=== PATIENT | female | born 1955 | race Caucasian/White ===

== ENCOUNTER → 2016-06-05 | Outpatient (CLI) | payer BC ==
[~2016-06-05] MED LIST: ACET-1138 PO; ASPEC81 PO; CLB200 PO; FLV1 PO; HYDR25TA4 PO; LOSA1TAB PO; NXM/40 PO; OXYSR10 PO
== END | disposition home or self-care (01) ==
LOC: C.LABSPEC 13:20
PROVIDERS: ATTEND Family Medicine
DX: R31.9 Hematuria, unspecified (principal)

== ENCOUNTER → 2016-08-15 | Outpatient (CLI) | payer BC ==
--- NOTE | 2016-08-15 12:30 | MAMMOGRAPHY REPORT ---
BILATERAL DIGITAL SCREENING MAMMOGRAM WITH CAD: 08/15/2016 CLINICAL HISTORY: Routine screening. TECHNIQUE: Current study was also evaluated with a Computer Aided Detection (CAD) system. Bilateral CC and MLO views were obtained. COMPARISON: Comparison is made to exams dated: 08/13/2015 mammogram, 08/11/2014 mammogram, 08/09/2013 m ammogram, 07/30/2012 mammogram, 07/28/2011 mammogram - [facility], and 04/10/2010 mamm ogram. BREAST COMPOSITION: There are scattered areas of fibroglandular density in both breasts. FINDINGS: No suspicious masses, calcifications, or areas of architectural distortion are noted in ei ther breast. There has been no significant interval change compared to prior exams. There are stable postsurgical changes in bilateral breasts from prior reduction mammoplasty, including multiple fat d ensity circumscribed masses in the left superior breast consistent with benign oil cysts from fat nec rosis. Bilateral asymmetries are stable. IMPRESSION: ACR BI-RADS CATEGORY 2: BENIGN There is no mammographic evidence of malignancy. A 1 year screening mammogram is recommended. The pa tient will receive written notification of the results. Approximately 10% of breast cancers are not detected with mammography. A negative mammographic report should not delay biopsy if a clinically suggestive mass is present. Myrtle Barraza M.D. /:08/15/2016 09:18:44 [place] Roller: Serena SUAZO)([place]), [facility] letter sent: Normal 1/2 BI-RADS Code: ACR BI-RADS Category 2: Benign
== END | disposition home or self-care (01) ==
LOC: C.MAMM 08:53
PROVIDERS: ATTEND Family Medicine
DX: Z12.31 Encounter for screening mammogram for malignant neoplasm of breast (principal)

== ENCOUNTER → 2016-08-27 | Outpatient (CLI) | payer BC ==
[2016-09-02 16:05] LABS: 18KDIGG BAND NONREACTIVE (NONREACTIVE); 23KDIGG BAND NONREACTIVE (NONREACTIVE); 23KDIGM BAND NONREACTIVE (NONREACTIVE); 28KDIGG BAND NONREACTIVE (NONREACTIVE); 30KDIGG BAND NONREACTIVE (NONREACTIVE); 39KDIGG BAND NONREACTIVE (NONREACTIVE); 39KDIGM BAND NONREACTIVE (NONREACTIVE); 41KDIGG BAND NONREACTIVE (NONREACTIVE); 41KDIGM BAND NONREACTIVE (NONREACTIVE); 45KDIGG BAND NONREACTIVE (NONREACTIVE); 58KDIGG BAND NONREACTIVE (NONREACTIVE); 66KDIGG BAND REACTIVE (NONREACTIVE); 93KDIGG BAND NONREACTIVE (NONREACTIVE)
== END | disposition home or self-care (01) ==
LOC: C.LABMFLN 13:39
PROVIDERS: ATTEND Orthopaedic Surgery Sports Medicine
DX: T14.8 Other injury of unspecified body region (principal); W57.XXXA Bitten or stung by nonvenomous insect and other nonvenomous arthropods, initial encounter

== ENCOUNTER → 2017-01-07 | Outpatient (CLI) | payer BC ==
[2017-01-07 13:23] LABS: BASO % 0.4 %; BASO ABS # 0.03 K/uL (0-0.2); COMPLETE YES; EOS % 0.7 %; HEMATOCRIT 37.6 % (37-47); IG% 0.3 %; LYMPH % 41.6 %; LYMPH ABS # 2.86 K/uL (1.2-3.4); MEAN CELL VOLUME 80.5 fL (80-100); MEAN CORPUSCULAR HEMOGLOBIN 25.5 pg (25-34); MEAN CORPUSCULAR HGB CONC 31.6 g/dl (32-36); MEAN PLATELET VOLUME 10.6 fL (7.4-10.4); MONO % 6.8 %; NEUT % 50.2 %; PLATELET COUNT 326 K/uL (130-400); RED BLOOD COUNT 4.67 M/uL (4.2-5.4); WHITE BLOOD COUNT 6.87 K/uL (4.8-10.8)
[2017-01-07 15:42] LABS: ALT/SGPT 39 U/L (12-78); BLOOD UREA NITROGEN 11 mg/dl (7-18); BUN/CREATININE RATIO 13.7 (10-20); CALCIUM 8.9 mg/dl (8.5-10.1); CARBON DIOXIDE 31 mmol/L (21-32); CHLORIDE 102 mmol/L (98-107); CHOLESTEROL 185 mg/dl (0-200); CREATININE 0.79 mg/dl (0.60-1.20); GLUCOSE 139 mg/dl (70-99); POTASSIUM 3.5 mmol/L (3.5-5.1); SODIUM 138 mmol/L (136-145); TRIGLYCERIDES 135 mg/dl (0-150); VERY LOW DENSITY LIPOPROT CALC 27 mg/dl
[2017-01-07 15:45] LABS: ALKALINE PHOSPHATASE 123 U/L (45-117); AST/SGOT 25 U/L (15-37); CHOLESTEROL/HDL RATIO 2.9; HDL CHOLESTEROL 64 mg/dl; LDL CHOLESTEROL CALCULATED 94 mg/dl
== END | disposition home or self-care (01) ==
LOC: C.LABSPEC 12:47
PROVIDERS: ATTEND Family Medicine
DX: I10 Essential (primary) hypertension (principal); E78.2 Mixed hyperlipidemia

== ENCOUNTER → 2017-01-20 | Outpatient (CLI) | payer BC ==
--- NOTE | 2017-01-20 14:34 | DIAGNOSTIC IMAGING REPORT ---
MRI LEFT KNEE NO CONTRAST CLINICAL HISTORY: LT KNEE PAIN history of knee arthroplasty in 2016 COMPARISON STUDY: 05/30/2015 FINDINGS: Imaging was performed in the sagittal, coronal, and axial planes. There is marked susceptibility artifact secondary to a prior total left knee arthroplasty. There is a small suprapatellar joint effusion. There are no areas of marrow replacement suspicious for neoplasm. There is marrow edema within the proximal tibia, surrounding the tibial spike. There is evidence for bone resorption. No soft tissue or intramuscular masses are visualized on this noncontrast study. There is nonspecific angulation of the tibial spike, best seen on the sagittal images. This may be artifactual. Correlation with conventional radiographs is recommended. IMPRESSION: 1. Postsurgical changes of a total left knee arthroplasty 2. Bone resorption surrounding the tibial component with adjacent marrow edema. 3. Joint effusion 4. Nonspecific angulation of the midportion of the tibial spike. While this may be artifactual, it would seem prudent to correlate with conventional radiographs. Electronically signed by: Nic Bowers M.D. 01/20/2017 2:33 PM Dictated Date/Time: 01/20/2017 2:21 PM
== END | disposition home or self-care (01) ==
LOC: C.MRI 12:53
PROVIDERS: ATTEND Family Medicine
DX: M25.562 Pain in left knee (principal)

== ENCOUNTER → 2017-01-30 | Outpatient (CLI) | payer BC ==
--- NOTE | 2017-01-30 13:02 | DIAGNOSTIC IMAGING REPORT ---
L KNEE 1 OR 2 VIEWS ROUTINE HISTORY: 61 years-old Female PAIN IN LEFT KNEE chronic left knee pain with history of prior total knee arthroplasty COMPARISON: Left knee radiographs 05/30/2015 TECHNIQUE: 2 views of left knee FINDINGS: Left knee arthroplasty without evidence of hardware complication. Prior patellar resurfacing. Alignment is satisfactory. The bones appear mildly demineralized. Small joint effusion. IMPRESSION: 1. Small joint effusion without acute fracture or dislocation. 2. Left knee arthroplasty without complication. The above report was generated using voice recognition software. It may contain grammatical, syntax or spelling errors. Electronically signed by: Clifford Beltran M.D. 01/30/2017 1:00 PM Dictated Date/Time: 01/30/2017 12:59 PM
== END | disposition home or self-care (01) ==
LOC: C.RAD 11:58
PROVIDERS: ATTEND Family Medicine
DX: M25.462 Effusion, left knee (principal); Z96.652 Presence of left artificial knee joint

== ENCOUNTER → 2017-02-23 | Outpatient (CLI) | payer BC ==
[2017-02-23 18:48] LABS: BASO % 0.3 %; BASO ABS # 0.03 K/uL (0-0.2); EOS ABS # 0.09 K/uL (0-0.5); HEMATOCRIT 37.9 % (37-47); HEMOGLOBIN 12.1 g/dL (12.0-16.0); IG# 0.02 K/uL (0.00-0.02); LYMPH % 34.8 %; MEAN CELL VOLUME 80.6 fL (80-100); MEAN CORPUSCULAR HEMOGLOBIN 25.7 pg (25-34); MEAN CORPUSCULAR HGB CONC 31.9 g/dl (32-36); MEAN PLATELET VOLUME 10.7 fL (7.4-10.4); MONO % 7.2 %; MONO ABS # 0.66 K/uL (0.11-0.59); NEUT % 56.5 %; NEUT ABS # 5.19 K/uL (1.4-6.5); PLATELET COUNT 358 K/uL (130-400); RED CELL DISTRIBUTION WIDTH CV 14.7 % (11.5-14.5); RED CELL DISTRIBUTION WIDTH SD 43.1 fL (36.4-46.3); WHITE BLOOD COUNT 9.19 K/uL (4.8-10.8)
[2017-02-23 19:05] LABS: ALBUMIN 3.5 gm/dl (3.4-5.0); ALT/SGPT 30 U/L (12-78); AST/SGOT 15 U/L (15-37); BLOOD UREA NITROGEN 8 mg/dl (7-18); CALCIUM 8.7 mg/dl (8.5-10.1); CARBON DIOXIDE 29 mmol/L (21-32); CREATININE 0.75 mg/dl (0.60-1.20); GLUCOSE 124 mg/dl (70-99); POTASSIUM 3.4 mmol/L (3.5-5.1); SODIUM 138 mmol/L (136-145)
[2017-02-23 19:09] LABS: ALKALINE PHOSPHATASE 120 U/L (45-117); TOTAL PROTEIN 7.7 gm/dl (6.4-8.2)
== END | disposition home or self-care (01) ==
LOC: C.LABSPEC 17:49
PROVIDERS: ATTEND Family Medicine
DX: R07.89 Other chest pain (principal)

== ENCOUNTER → 2017-03-06 | Outpatient (CLI) | payer BC ==
--- NOTE | 2017-03-06 13:17 | EXERCISE STRESS ECHO ---
*NOTICE TO RECEIVING [employer] This information is strictly Confidential and protected under [place] law. [place] law prohibits you from making any further disclosure of this information unless further disclosure is expressly permitted by the written consent of the person to whom it pertains or is authorized by law. A general authorization for the release of medical or other information is not sufficient for this purpose. Hospital accepts no responsibility if the information is made available to any other person, INCLUDING THE PATIENT. Interpretation Summary * Name: TINA ETIENNE Study Date: 03/06/2017 09:43 AM BP: 143/73 mmHg * Patient Location: [facility] HR: 77 * : 1955 (M/d/yyyy) Gender: Female Height: 52 in * Age: 61 yrs Ethnicity: [place] Weight: 205 lb * Ordering Physician: Misha Coats * Referring Physician: Misha Coats ([place]) * Performed By: Christine Garcia RCS * * Reason For Study: CHEST PAIN * BSA: 1.7 m2 * -- Conclusions -- * 1. Negative exercise stress echo for ischemia at >110% MPHR. * 2. Negative stress ECG for ischemia. * 3. Average functional capacity for age. Exercised 6:00 min, acheiving 7 METS. * 4. No exercise induced chest pain. Normal hemodynamic response to exercise. * 5. Normal resting LV size and function. EF 55-60%. Normal RV size and function. No significant valvular pathology. * 6. No prior studies for comparison. Procedure Details * ECHOEX, CPT #[id number] * ECHO COLOR FLOW, CPT #[id number] * ECHO DOPPLER, CPT #[id number] Left Ventricular Findings with Stress * This was essentially a normal study. Left Ventricle * The left ventricle is grossly normal size. * There is normal left ventricular wall thickness. * Ejection Fraction = 55-60%. * Resting wall motion: Normal. Stress wall motion: Appropriate increase in Left ventricular systolic function and decrease in cavity size. No stress induced segmental wall motion abnormalities. Right Ventricle * The right ventricle is grossly normal size. * The right ventricular systolic function is normal as assessed by tricuspid annular plane systolic excursion (TAPSE) (normal >1.5 cm). Atria * The left atrial size is normal. * Right atrial size is normal. Mitral Valve * The mitral valve is grossly normal. * There is no mitral valve stenosis. * There is trace mitral regurgitation. Aortic Valve * The aortic valve opens well. * No hemodynamically significant valvular aortic stenosis. * There is no significant aortic regurgitation. Pulmonic Valve * The pulmonary valve is inadequately visualized, but the Doppler data is adequate for interpretation. * There is no significant pulmonary regurgitation. Great Vessels * The aortic root and proximal ascending aorta are normal sized. Pericardium * There is no pericardial effusion. Stress Parameters * Normal baseline electrocardiogram. * Stress ECG: No ST changes. No arrhythmias. * No arrhythmia were noted with stress. * Rest heart rate was '77' BPM. * Rest blood pressure was '143/73' * Maximum heart rate achieved was 181 bpm. * Maximum heart rate was 114 % of maximum age-predicted heart rate. * Maximum blood pressure was '172/68' * Total exercise time was '6:010' * Maximum exercise MET level achieved was '7.0' METS * Maximum treadmill speed was '2.5' miles per hour. * Maximum treadmill elevation was '12'% grade. * Exercise was terminated due to 'fatigue after achieving target heart rate' * Normal blood pressure response to exercise. Left Ventricular Findings with Stress * The study was technically good with many images being of high quality. MMode 2D Measurements and Calculations IVSd 0.99 cm IVSs 1.3 cm LVIDd 4.8 cm LVIDs 2.9 cm LVPWd 0.91 cm LVPWs 1.3 cm IVS/LVPW 1.1 FS 38.5 % EDV(Teich) 106.0 ml ESV(Teich) 33.2 ml EF(Teich) 68.7 % EDV(cubed) 108.6 ml ESV(cubed) 25.3 ml EF(cubed) 76.7 % % IVS thick 33.0 % % LVPW thick 38.7 % LV mass(C)d 156.8 grams LV mass(C)dI 92.2 grams/m\S\2 LV mass(C)s 118.6 grams LV mass(C)sI 69.8 grams/m\S\2 SV(Teich) 72.8 ml SI(Teich) 42.8 ml/m\S\2 SV(cubed) 83.3 ml SI(cubed) 49.0 ml/m\S\2 Ao root diam 3.5 cm Ao root area 9.5 cm\S\2 ACS 1.7 cm LA dimension 3.9 cm asc Aorta Diam 3.3 cm LA/Ao 1.1 Doppler Measurements and Calculations MV E max melisa 71.6 cm/sec MV A max melisa 100.5 cm/sec MV E/A 0.71 MV dec time 0.23 sec Ao V2 max 115.9 cm/sec Ao max PG 5.4 mmHg Ao max PG (full) 2.0 mmHg LV V1 max PG 3.4 mmHg LV V1 max 91.9 cm/sec PA V2 max 82.4 cm/sec PA max PG 2.7 mmHg
== END | disposition home or self-care (01) ==
LOC: C.CPL 09:40
PROVIDERS: ATTEND Family Medicine
DX: R07.89 Other chest pain (principal); M54.9 Dorsalgia, unspecified

== ENCOUNTER → 2017-04-06 | Outpatient (CLI) | payer BC ==
[2017-04-06 16:42] LABS: BASO % 0.3 %; BASO ABS # 0.03 K/uL (0-0.2); EOS % 0.9 %; EOS ABS # 0.09 K/uL (0-0.5); HEMOGLOBIN 11.8 g/dL (12.0-16.0); IG# 0.04 K/uL (0.00-0.02); LYMPH ABS # 2.87 K/uL (1.2-3.4); MEAN CELL VOLUME 80.6 fL (80-100); MEAN CORPUSCULAR HEMOGLOBIN 25.7 pg (25-34); MEAN CORPUSCULAR HGB CONC 31.9 g/dl (32-36); MEAN PLATELET VOLUME 10.3 fL (7.4-10.4); MONO % 7.3 %; NEUT % 61.1 %; NEUT ABS # 5.83 K/uL (1.4-6.5); PLATELET COUNT 374 K/uL (130-400); RED CELL DISTRIBUTION WIDTH CV 14.5 % (11.5-14.5); RED CELL DISTRIBUTION WIDTH SD 42.5 fL (36.4-46.3); WHITE BLOOD COUNT 9.56 K/uL (4.8-10.8)
--- NOTE | 2017-04-06 18:13 | DIAGNOSTIC IMAGING REPORT ---
BONE SCAN 3 PHASE LIMITED CLINICAL HISTORY: LT TKA, ASCESS FOR INFECTION VS LOOSENING, Z96.652 TECHNIQUE: 3 phase bone scan from the administration of 24 mCi technetium 9M HDP. COMPARISON STUDY: None FINDINGS: Vascular characteristics are unremarkable. There is no focus of hyperemia or increased vascularity. Blood pool images suggests a slight degree of blood pool activity adjacent to the left tibial prosthetic. Delayed images again suggest a slight degree of marrow reaction adjacent to the left medial tibial plateau. This may indicate a partial degree of loosening. IMPRESSION: Mild increase in activity adjacent to the medial aspect of the tibial prosthetic. This may indicate a degree of partial loosening. The above report was generated using voice recognition software. It may contain grammatical, syntax or spelling errors. Electronically signed by: Sanford Mathis M.D. 04/06/2017 6:12 PM Dictated Date/Time: 04/06/2017 6:09 PM
== END | disposition home or self-care (01) ==
LOC: C.NUCL 14:46
PROVIDERS: ATTEND Orthopaedic Surgery Sports Medicine
DX: Z96.652 Presence of left artificial knee joint (principal); R93.7 Abnormal findings on diagnostic imaging of other parts of musculoskeletal system